=== PATIENT | male | born 1960 | race Caucasian/White ===

== ENCOUNTER 2016-09-26 13:52 | Inpatient (IN) | payer OTHER ==
[~2016-09-26] VITALS: Ht 177.8 cm; Wt 122.0 kg
[~2016-09-26 13:52] MED LIST: ALLOPURINOL300 MG PO; BYDUREON P2 MG/0.65 SC; CARDURA8 MG PO; ENDOCET 7.5-321 EACH PO; GABAPENTIN800 MG PO; INVOKANA300 MG PO; MYSOLINE50 MG PO; OMEPRAZOLE20 MG PO; PROZAC40 MG PO; VIBERZI100 MG PO
[2016-09-26 14:41] LABS: HEMATOCRIT 38.5 % (38.0-50.0); MCH 25.7 PG (29.0-34.0); MCHC 29.9 G/DL (30.0-36.0); MCV 86.1 FL (86-99); PLATELET COUNT 228 K/uL (156-360); RBC DIS.WIDTH-CV 16.6 % (11.8-14.6); RBC DIS.WIDTH-SD 52.1 % (39-53); RED BLOOD COUNT 4.47 M/uL (4.00-5.50)
[2016-09-26 15:19] LABS: ANION GAP 8 MEQ/L (2-14); CHLORIDE 108 MEQ/L (99-109); POTASSIUM 3.8 MEQ/L (3.7-5.4); SAMPLE HEMOLYSIS CHECK 0; SAMPLE ICTERIC CHECK 0; SAMPLE LIPEMIA CHECK 0; SODIUM 140 MEQ/L (136-147)
[2016-09-26 15:24] LABS: GFR ESTIMATE (CALCULATED) > 59 mL/min/; GLUCOSE 107 mg/dL (70-99); UREA NITROGEN (BUN) 18 mg/dL (9-23)
[2016-09-26 21:58] LABS: POINT-OF-CARE METER ID UU13113675
[2016-09-26 22:55] VITALS: BP 140/74
[2016-09-27] VITALS (7 sets, daily range): BP systolic 116–168; BP diastolic 58–78
[2016-09-27] MEDS ORDERED: CYCLOBENZAPRINE10 MG PO (08:41)
[2016-09-27 21:29] LABS: POINT-OF-CARE METER ID UU14188577
[2016-09-28] VITALS: BP 141/70
[2016-09-28 03:59] VITALS: BP 125/75
[2016-09-28 08:24] VITALS: BP 127/69
[2016-09-28 11:40] VITALS: BP 142/71
[2016-09-28 12:13] LABS: POINT-OF-CARE METER ID UU14149397
[2016-09-28 16:09] VITALS: BP 139/65
[2016-09-28 17:07] LABS: POINT-OF-CARE METER ID UU14149397
[2016-09-29 00:01] VITALS: BP 136/64
[2016-09-29 07:08] LABS: POINT-OF-CARE METER ID UU14149397
[2016-09-29 08:15] VITALS: BP 147/69
[2016-09-29 16:02] VITALS: BP 126/60
[2016-09-29 21:55] LABS: POINT-OF-CARE METER ID UU14188577
[2016-09-30 00:28] VITALS: BP 126/59
[2016-09-30 06:21] LABS: POINT-OF-CARE METER ID UU14149397
[2016-09-30 08:14] VITALS: BP 119/78
[2016-09-30 16:30] VITALS: BP 134/65
[2016-09-30 16:58] LABS: POINT-OF-CARE METER ID UU14149397
[2016-09-30 23:54] VITALS: BP 166/78
[2016-10-01 06:40] LABS: POINT-OF-CARE METER ID UU14149397
[2016-10-01 08:15] VITALS: BP 134/82
[2016-10-01 11:51] LABS: POINT-OF-CARE METER ID UU14149397
[2016-10-01] MEDS ORDERED: HYDROCODON-ACE1 EAC7 PO (16:23)
[2016-10-01] MEDS ORDERED: CYCLOBENZAPRINE10 MG PO (16:23)
[2016-10-01 16:29] VITALS: BP 141/65
[2016-10-01 17:14] LABS: POINT-OF-CARE METER ID UU14149397
[2016-10-01] MEDS ORDERED: ANCEF,KEFZ2 GM/100 M IV (19:00)
== END 2016-10-01 19:53 | DRG 863 ==
LOC: SDC 13:52 → 2SOUTH 21:54 → 3EAST 21:54
PROVIDERS: Neurological Surgery
PROC: 0J9700Z Drainage of Back Subcutaneous Tissue and Fascia with Drainage Device, Open Approach (ICD-10-PCS; principal; 2016-09-27)
DX: T81.4XXA Infection following a procedure, initial encounter (principal); Z98.1 Arthrodesis status; T81.89XA Other complications of procedures, not elsewhere classified, initial encounter; B95.61 Methicillin susceptible Staphylococcus aureus infection as the cause of diseases classified elsewhere; E11.9 Type 2 diabetes mellitus without complications; G47.30 Sleep apnea, unspecified; I42.9 Cardiomyopathy, unspecified; I50.9 Heart failure, unspecified; F32.9 Major depressive disorder, single episode, unspecified; E66.9 Obesity, unspecified; E78.00 Pure hypercholesterolemia, unspecified; K59.00 Constipation, unspecified; N40.0 Benign prostatic hyperplasia without lower urinary tract symptoms; Z87.730 Personal history of (corrected) cleft lip and palate; Z98.84 Bariatric surgery status; Z79.84 Long term (current) use of oral hypoglycemic drugs; Z68.38 Body mass index [BMI] 38.0-38.9, adult; Z83.3 Family history of diabetes mellitus; Z82.49 Family history of ischemic heart disease and other diseases of the circulatory system
CPT/HCPCS: 76937; 80048; 82948; 85027; 85651; 86140; 87070; 87075; 87077; 87147; 87186; 87205; 93005; G0378; J0690; J1170; J1815; J3010; J3370; J3480; J7050; S0020; S0032